=== PATIENT | female | born 1995 | race Caucasian/White ===

== ENCOUNTER → 2018-10-16 | Outpatient (REF) | payer OTHER | LOC: M SFHCLERA 12:27 | PROVIDERS: ATTEND Nurse Practitioner Family | DX: J02.9 Acute pharyngitis, unspecified (principal) ==

== ENCOUNTER → 2019-01-07 | Outpatient (REF) | payer OTHER ==
[2019-01-07 16:50] LABS: BASO % 0.3 % (0.0-1.0); EOS # 0.1 10^3/uL (0.0-0.5); EOS % 0.7 % (0.0-3.0); HEMATOCRIT 41.8 % (36.0-47.0); HEMOGLOBIN 13.5 g/dl (12.0-15.5); LYMPH # 2.2 10^3/uL (1.5-5.0); LYMPH % 30.2 % (24.0-44.0); MEAN CORPUSCULAR HEMOGLOBIN 29.6 pg (27.0-33.0); MEAN CORPUSCULAR HGB CONC 32.3 g/dl (32.0-36.5); MEAN CORPUSCULAR VOLUME 91.7 fl (80.0-96.0); MONO # 0.7 10^3/uL (0.0-0.8); MONO % 9.9 % (0.0-5.0); NEUTROPHILS # 4.2 10^3/uL (1.5-8.5); NEUTROPHILS % 58.6 % (36.0-66.0); PLATELET COUNT, AUTOMATED 301 10^3/uL (150-450); RED BLOOD COUNT 4.56 10^6/uL (4.00-5.40); WHITE BLOOD COUNT 7.2 10^3/uL (4.0-10.0)
[2019-01-07 17:35] LABS: ALBUMIN 3.6 GM/DL (3.2-5.2); ALT/SGPT 38 U/L (12-78); BLOOD UREA NITROGEN 9 MG/DL (7-18); CALCIUM LEVEL 8.8 MG/DL (8.5-10.1); CARBON DIOXIDE LEVEL 28 MEQ/L (21-32); CHLORIDE LEVEL 104 MEQ/L (98-107); CK-MB VALUE MASS < 1.0 NG/ML (<3.6); CPK CREATINE PHOSPHOKINASE 67 U/L (26-192); CREATININE FOR GFR 0.68 MG/DL (0.55-1.30); GLOMERULAR FILTRATION RATE > 60.0 (>60); GLUCOSE, FASTING 68 MG/DL (70-100); MB/CK RELATIVE INDEX 1.49 (< OR =4); POTASSIUM SERUM 3.6 MEQ/L (3.5-5.1); SODIUM LEVEL 141 MEQ/L (136-145); TOTAL PROTEIN 7.6 GM/DL (6.4-8.2); TROPONIN I < 0.02 NG/ML (< 0.10)
== END ==
LOC: M SFHCLERA 14:20
PROVIDERS: ATTEND Nurse Practitioner Family
DX: R42 Dizziness and giddiness (principal); R07.89 Other chest pain
CPT/HCPCS: 71046; 80053; 81002; 81025; 82550; 82553; 82948; 84443; 84484; 85025; 94640; G0463

== ENCOUNTER → 2019-01-07 | Outpatient (CLI) | payer OTHER ==
--- NOTE | 2019-01-07 21:50 | REP ---
CHEST, TWO VIEWS: There is no evidence of acute infiltrate. No pleural effusion is seen. The heart is normal in size. The mediastinal silhouette is unremarkable. The visualized osseous structures are intact. IMPRESSION: No acute pulmonary disease. Electronically Signed by Edison Carmichael MD 01/08/2019 11:30 A
== END ==
LOC: M LRY 14:38
PROVIDERS: ATTEND Nurse Practitioner Family
DX: R07.89 Other chest pain (principal)

== ENCOUNTER → 2019-02-08 | Outpatient (REF) | payer OTHER ==
[2019-02-08 16:21] LABS: HEMOGLOBIN 13.1 g/dl (12.0-15.5); MEAN CORPUSCULAR HEMOGLOBIN 30.3 pg (27.0-33.0); MEAN CORPUSCULAR HGB CONC 32.8 g/dl (32.0-36.5); MEAN CORPUSCULAR VOLUME 92.4 fl (80.0-96.0); PLATELET COUNT, AUTOMATED 278 10^3/uL (150-450); RED BLOOD COUNT 4.33 10^6/uL (4.00-5.40); WHITE BLOOD COUNT 5.6 10^3/uL (4.0-10.0)
[2019-02-08 16:29] LABS: BLOOD UREA NITROGEN 15 MG/DL (7-18); CALCIUM LEVEL 8.8 MG/DL (8.5-10.1); CARBON DIOXIDE LEVEL 29 MEQ/L (21-32); CHLORIDE LEVEL 105 MEQ/L (98-107); CREATININE FOR GFR 0.74 MG/DL (0.55-1.30); GLOMERULAR FILTRATION RATE > 60.0 (>60); GLUCOSE, FASTING 83 MG/DL (70-100); POTASSIUM SERUM 3.9 MEQ/L (3.5-5.1); SODIUM LEVEL 139 MEQ/L (136-145)
== END ==
LOC: M SFHCLERA 10:24
PROVIDERS: ATTEND Family Medicine
DX: F41.1 Generalized anxiety disorder (principal)
CPT/HCPCS: 80048; 84443; 85027; G0463

== ENCOUNTER → 2019-02-26 | Outpatient (REF) | payer OTHER | LOC: M LAB REF 13:29 | PROVIDERS: ATTEND Advanced Practice Midwife | DX: Z12.4 Encounter for screening for malignant neoplasm of cervix (principal) ==

== ENCOUNTER 2019-03-19 13:21 | Outpatient (RCR) | payer OTHER | END 2019-03-27 | LOC: M PT 13:21 | PROVIDERS: ATTEND Family Medicine | DX: Z47.89 Encounter for other orthopedic aftercare (principal) ==

== ENCOUNTER → 2019-03-31 | Outpatient (CLI) | payer OTHER ==
[2019-03-31 19:21] LABS: ESTRADIOL 92.9 PG/ML; FOLLICLE STIMULATING HORMONE 6.2 mIU/mL; LUTEINIZING HORMONE 5.6 mIU/mL; PROLACTIN 8.1 NG/ML
[2019-04-07 10:43] LABS: 17 HYDROXY PROGESTERONE 43 ng/dL (.); ANTI MULLERIAN HORMONE 3.64 ng/mL (.); TESTOSTERONE FREE (DIRECT) 3.2 pg/mL (0.0-4.2)
== END ==
LOC: M PLALAB 15:16
PROVIDERS: ATTEND Advanced Practice Midwife
DX: Z31.69 Encounter for other general counseling and advice on procreation (principal)
CPT/HCPCS: 36415; 82627; 82670; 83001; 83002; 83498; 83516; 84146; 84402; 84403; G0463

== ENCOUNTER 2019-04-16 08:00 | Outpatient (RCR) | payer OTHER | END 2019-04-27 | LOC: M PT 08:00 | PROVIDERS: ATTEND Family Medicine | DX: Z51.89 Encounter for other specified aftercare (principal); M54.5 Low back pain; M22.8X1 Other disorders of patella, right knee; M22.8X2 Other disorders of patella, left knee ==

== ENCOUNTER → 2019-05-28 | Outpatient (RCR) | payer OTHER | LOC: M PT 05-14 13:03 | PROVIDERS: ATTEND Family Medicine | DX: M54.5 Low back pain (principal); M25.561 Pain in right knee; M25.562 Pain in left knee ==

== ENCOUNTER → 2019-06-10 | Outpatient (CLI) | payer OTHER ==
[~2019-06-10] MED LIST: METHACHOLINE KIT (J7674) INH ONE
--- NOTE | 2019-06-10 14:51 | PFTRPT ---
Visit Date: 06/10/2019 Referring Doctor: NANDINI Loja Marcus, M Height: 70.00 Inches Weight: 218.00 Lbs BSA: 2.17 Diagnosis: R06.00 INTERPRETATION: Study of excellent technical quality. Under protocol, methacholine was administered. A dose of 2.5 mg or 13.875 CDUs, a 29% decline in the FEV1 was noted. PC of 0.65 is significant. Flow rates did return to baseline post bronchodilator administration. IMPRESSION: Positive methacholine challenge study. MTDD
== END ==
LOC: M CARPUL 13:50
PROVIDERS: ATTEND Physician Assistant
DX: R06.00 Dyspnea, unspecified (principal)
CPT/HCPCS: 94070; G0463; J7674

== ENCOUNTER 2019-06-23 13:45 | Outpatient (RCR) | payer OTHER | END 2019-06-26 | LOC: M PT 13:45 | PROVIDERS: ATTEND Family Medicine | DX: M54.5 Low back pain (principal); M25.561 Pain in right knee; M25.562 Pain in left knee; Z47.89 Encounter for other orthopedic aftercare ==